=== PATIENT | female | born 1980 | race Two or more races ===

== ENCOUNTER → 2023-05-10 | Outpatient (CLI) | payer MEDICAID ==
[~2023-05-10] VITALS: Ht 175.3 cm; Wt 122.9 kg
[~2023-05-10] MED LIST: ADENOSINE 103 MG in GIVE UN-DILUTED 0 ML IV ONE
== END | disposition home or self-care (01) ==
LOC: XYW 07:56
PROVIDERS: ATTEND Specialist
DX: Z01.818 Encounter for other preprocedural examination (principal); R06.09 Other forms of dyspnea; I10 Essential (primary) hypertension
CPT/HCPCS: 78452; 93017; A9500; J0153